=== PATIENT | female | born 1965 | race Caucasian/White ===

== ENCOUNTER → 2016-05-09 09:08 | Outpatient (CLI) | payer MEDICARE ==
[~2016-05-09 09:08] MED LIST: ACETAMINOPHEN500 M1 PO; BENADRYL25 MG IV; BENTYL10 MG PO; CIPRO500 MG PO; COLACE100 MG PO; EFFEXOR XR150 MG PO; ELIQUIS2.5 MG PO; FISH OIL 1,0001 CA1 PO; FLORANEX / LACT1 TAB PO; GLUCOPHAGE500 MG PO; HYDROCODON-ACE1 EAC7 PO; HYDROCODONE-APA1 TAB PO; IPRAT-ALBUT 0.5-3 ML UPD; K-DUR20 MEQ PO; LASIX40 MG PO; LOPRESSOR25 MG PO; MOBIC7.5 MG PO; MS CONTIN30 MG PO; NALOXONE HC0.4 MG/M1 IV; NAPROSYN500 MG PO; NEURONTIN 300300 MG PO; ONDANSETRON4 MG/2 M3 IV; POTASSIUM CHLO10 ME1 PO; PRILOSEC20 MG PO; PRINIVIL20 MG PO; PROBIOTIC PO; PROTONIX 40 MG40 MG IV; PROTONIX40 MG PO; QUESTRAN PACK4 G/PKT PO; REMERON15 MG/UDTA PO; SALINE FLUSH10 ML IV; SENOKOT-S TABLE1 TAB PO; UNASYN IV; XANAX1 MG PO; ZANAFLEX4 MG PO
== END | disposition home or self-care (01) ==
LOC: D.MRI 09:08
DX: R97.8 Other abnormal tumor markers (principal); M25.512 Pain in left shoulder

== ENCOUNTER 2016-07-25 10:53 | Outpatient (CLI) | payer MEDICARE ==
[~2016-07-25] VITALS: Ht 158.8 cm; Wt 125.0 kg
[2016-07-25] MEDS ORDERED: NEURONTIN600 MG PO (12:34)
[2016-07-25 13:12] VITALS: Ht 158.8 cm; Wt 125.0 kg
--- NOTE | 2016-07-25 13:34 | NUR ---
1310 O2 SAT 91% @ BEST ON ROOM AIR WITH DROPS BELOW 90. PT STATES SHE USES O2 2.5L/NC @ NIGHT. O2 2L/NC APPLIED. Omid ARROYO R.N. 1335 SERVED REGULAR DIET. Omid ARROYO R.N.
--- NOTE | 2016-07-25 19:10 | NUR ---
1830 IV DC WITH CATHER TIP INTACT
== END 2016-07-25 18:50 | disposition home or self-care (01) ==
LOC: D.OPS 10:53
DX: D64.9 Anemia, unspecified (principal)

== ENCOUNTER → 2016-07-27 09:32 | Outpatient (CLI) | payer MEDICARE ==
[2016-07-25 13:12] VITALS: BMI 49.6
[~2016-07-27 09:32] MED LIST changes: +NEURONTIN600 MG PO
[2016-07-27 09:59] LABS: BASOPHILS 0.3 % (0-2); EOSINOPHILS 8.4 % (0-7); HEMATOCRIT 33.9 % (36.0-48.0); HEMOGLOBIN 10.4 g/dL (12-16); IMMATURE GRANULOCYTES 0.4 % (0-5); LYMPHOCYTES 28.8 % (15-50); MCH 28.8 pg (26.0-34.0); MCHC 30.7 g/dL (31.0-37.0); MCV 93.9 fL (80.0-100.0); MEAN PLATELET VOLUME 10.4 fL (7.4-10.4); MONOCYTES 9.3 % (2-11); NEUTROPHILS 52.8 % (40-80); PLATELET COUNT 215 10x3/uL (130-400); RBC 3.61 10x6/uL (4.00-5.40); RDW 14.3 % (11.5-14.5); WBC 6.8 10x3/uL (4.8-10.8)
[2016-07-27 10:16] LABS: ANION GAP 9.6 mmol/L (8-16); CARBON DIOXIDE 30.8 mmol/L (21.0-32.0); CREATININE - SERUM 1.2 mg/dL (0.6-1.3); POTASSIUM - SERUM 4.4 mmol/L (3.5-5.1)
== END | disposition home or self-care (01) ==
LOC: D.LAB 09:32
PROVIDERS: Family Medicine
DX: D64.9 Anemia, unspecified (principal); N17.9 Acute kidney failure, unspecified

== ENCOUNTER → 2016-11-17 13:34 | Outpatient (CLI) | payer MEDICARE ==
[2016-07-25 13:12] VITALS: BMI 49.6
== END | disposition home or self-care (01) ==
LOC: D.MRI 09:00
DX: M54.16 Radiculopathy, lumbar region (principal)

== ENCOUNTER → 2016-11-21 12:25 | Outpatient (CLI) | payer MEDICARE ==
[2016-07-25 13:12] VITALS: BMI 49.6
== END | disposition home or self-care (01) ==
LOC: D.MAMMO 11:30
DX: Z12.31 Encounter for screening mammogram for malignant neoplasm of breast (principal)

== ENCOUNTER 2017-05-05 03:13 | Emergency (ER) | payer MEDICARE ==
[2016-07-25 13:12] VITALS: BMI 49.6
[2017-05-05 03:47] LABS: BASOPHILS 0.3 % (0-2); EOSINOPHILS 3.6 % (0-7); HEMATOCRIT 38.7 % (36.0-48.0); HEMOGLOBIN 12.3 g/dL (12-16); IMMATURE GRANULOCYTES 0.3 % (0-5); LYMPHOCYTES 30.6 % (15-50); MCHC 31.8 g/dL (31.0-37.0); MCV 94.4 fL (80.0-100.0); MEAN PLATELET VOLUME 11.5 fL (7.4-10.4); MONOCYTES 7.3 % (2-11); NEUTROPHILS 57.9 % (40-80); PLATELET COUNT 201 10x3/uL (130-400); WBC 10.1 10x3/uL (4.8-10.8)
[2017-05-05 04:01] LABS: ALBUMIN 3.8 g/dL (3.4-5.0); ANION GAP 12.4 mmol/L (8-16); BILIRUBIN - TOTAL 0.29 mg/dL (0.2-1.3); CALCIUM 9.6 mg/dL (8.5-10.1); CARBON DIOXIDE 33.6 mmol/L (21.0-32.0); CREATININE - SERUM 1.4 mg/dL (0.6-1.3); PROTEIN - SERUM 8.2 g/dL (6.4-8.2)
[2017-05-05 04:16] LABS: COLOR YELLOW (YELLOW)
[2017-05-05 04:18] LABS: APPEARANCE HAZY (CLEAR); BILIRUBIN NEGATIVE (NEGATIVE); GLUCOSE NEGATIVE (NEGATIVE); KETONE NEGATIVE (NEGATIVE); NITRITE NEGATIVE (NEGATIVE); PROTEIN TRACE mg/dL (NEGATIVE); SPECIFIC GRAVITY 1.015 (1.005-1.020); UROBILINOGEN NORMAL (NORMAL)
== END 2017-05-05 05:58 | disposition home or self-care (01) ==
LOC: D.ER 03:13
PROVIDERS: Emergency Medicine
DX: N39.0 Urinary tract infection, site not specified (principal); K52.9 Noninfective gastroenteritis and colitis, unspecified; I10 Essential (primary) hypertension; E11.9 Type 2 diabetes mellitus without complications

== ENCOUNTER 2017-06-29 00:08 | Observation (INO) | payer MEDICARE ==
[~2017-06-29] VITALS: Ht 158.8 cm; Wt 125.3 kg
--- NOTE | ~2017-06-29 | DS ---
PATIENT:DEANN HERNANDEZ :61 MEDICAL RECORD: [id number] DISCHARGE SUMMARY ADMISSION DATE: 06/29/17 DISCHARGE DATE: 07/01/17 DATE OF ADMISSION: 06/29/2017 DATE OF DISCHARGE: 07/01/2017 ADMISSION DIAGNOSES: Intractable nausea and vomiting and epigastric pain. CONSULTS: Dr. Dougherty of GI. PROCEDURES: EGD with findings of esophageal ulcers. DISCHARGE DIAGNOSES: Intractable nausea and vomiting, resolved. Esophageal ulcers. HOSPITAL COURSE: The patient was admitted to the Emergency Room with intractable nausea and vomiting and epigastric pain. GI consulted. IV fluids and antiemetics. EGD showed extensive esophagitis and esophageal ulcers. The patient started on Protonix and Carafate. Tolerating diet now, anxious to go home. The patient is discharged home in significantly improved condition. Will continue bland diet. Will follow up with Dr. Penny within the next 10 days. Will follow up with Dr. Dougherty. See chart for further details. TRANSINT:[id number] Voice Confirmation ID: [id number] DOCUMENT ID: [id number] KATHY HUYNH DO at 1828 CC: [id number] DICTATION DATE: 07/01/17 1258 JUNIOR LEGAL SECRETARY: 07/01/17 1342 DIS IN 07/01/17 [facility] [address] [place] [address]
[2017-06-29 00:48] LABS: BASOPHILS 0.2 % (0-2); EOSINOPHILS 1.9 % (0-7); HEMATOCRIT 42.7 % (36.0-48.0); IMMATURE GRANULOCYTES 0.3 % (0-5); LYMPHOCYTES 9.5 % (15-50); MCHC 32.8 g/dL (31.0-37.0); MCV 91.4 fL (80.0-100.0); MEAN PLATELET VOLUME 11.7 fL (7.4-10.4); MONOCYTES 6.1 % (2-11); PLATELET COUNT 180 10x3/uL (130-400); RBC 4.67 10x6/uL (4.00-5.40); RDW 13.8 % (11.5-14.5); WBC 13.2 10x3/uL (4.8-10.8)
[2017-06-29 01:05] LABS: ALBUMIN 3.8 g/dL (3.4-5.0); ANION GAP 13.6 mmol/L (8-16); BILIRUBIN - TOTAL 0.29 mg/dL (0.2-1.3); CARBON DIOXIDE 30.3 mmol/L (21.0-32.0); CREATININE - SERUM 1.4 mg/dL (0.6-1.3); POTASSIUM - SERUM 3.9 mmol/L (3.5-5.1); PROTEIN - SERUM 8.3 g/dL (6.4-8.2)
[2017-06-29 05:45] LABS: APPEARANCE CLOUDY (CLEAR); BILIRUBIN NEGATIVE (NEGATIVE); COLOR DK YELLOW (YELLOW); GLUCOSE NEGATIVE (NEGATIVE); KETONE MODERATE mg/dL (NEGATIVE); NITRITE NEGATIVE (NEGATIVE); PROTEIN NEGATIVE (NEGATIVE); UROBILINOGEN NORMAL (NORMAL)
[2017-06-29 06:12] LABS: BASOPHILS 0.1 % (0-2); EOSINOPHILS 0.9 % (0-7); HEMATOCRIT 43.9 % (36.0-48.0); HEMOGLOBIN 14.3 g/dL (12-16); IMMATURE GRANULOCYTES 0.3 % (0-5); LYMPHOCYTES 2.6 % (15-50); MCH 29.9 pg (26.0-34.0); MCHC 32.6 g/dL (31.0-37.0); MCV 91.6 fL (80.0-100.0); MEAN PLATELET VOLUME 12.2 fL (7.4-10.4); MONOCYTES 3.2 % (2-11); NEUTROPHILS 92.9 % (40-80); PLATELET COUNT 153 10x3/uL (130-400); RBC 4.79 10x6/uL (4.00-5.40); RDW 13.9 % (11.5-14.5); WBC 11.5 10x3/uL (4.8-10.8)
[2017-06-29 06:34] LABS: ALBUMIN 3.9 g/dL (3.4-5.0); ANION GAP 14.7 mmol/L (8-16); BILIRUBIN - TOTAL 0.5 mg/dL (0.2-1.3); CALCIUM 8.9 mg/dL (8.5-10.1); CARBON DIOXIDE 27.4 mmol/L (21.0-32.0); CREATININE - SERUM 1.5 mg/dL (0.6-1.3); POTASSIUM - SERUM 4.1 mmol/L (3.5-5.1); PROTEIN - SERUM 7.9 g/dL (6.4-8.2)
[2017-06-29] MEDS ORDERED: LIPITOR20 MG PO (15:44)
[2017-06-29] MEDS ORDERED: VITAMIN D31000 UNI2 PO (15:45)
[2017-06-29] MEDS ORDERED: IRON (15:49)
[2017-06-29 15:50] VITALS: BP 147/69; Ht 158.8 cm; Wt 125.3 kg
[2017-06-29 20:00] VITALS: BP 118/60
[2017-06-30 01:00] VITALS: BP 115/41
[2017-06-30 04:00] VITALS: BP 103/58
[2017-06-30 05:44] LABS: BASOPHILS 0.2 % (0-2); EOSINOPHILS 1.9 % (0-7); HEMATOCRIT 39.4 % (36.0-48.0); HEMOGLOBIN 12.6 g/dL (12-16); IMMATURE GRANULOCYTES 0.2 % (0-5); LYMPHOCYTES 13.2 % (15-50); MCH 29.6 pg (26.0-34.0); MCV 92.7 fL (80.0-100.0); MEAN PLATELET VOLUME 11.9 fL (7.4-10.4); NEUTROPHILS 78.5 % (40-80); PLATELET COUNT 129 10x3/uL (130-400); RBC 4.25 10x6/uL (4.00-5.40); RDW 14.4 % (11.5-14.5)
[2017-06-30 05:48] LABS: WBC 5.4 10x3/uL (4.8-10.8)
[2017-06-30 06:02] LABS: INR 1.2 (0.85-1.17); PROTIME 14.7 SECONDS (11.6-15.0)
[2017-06-30 06:30] LABS: ANION GAP 15.3 mmol/L (8-16); BILIRUBIN - TOTAL 0.66 mg/dL (0.2-1.3); CALCIUM 8.4 mg/dL (8.5-10.1); CARBON DIOXIDE 25.4 mmol/L (21.0-32.0); CHOL - HDL RATIO 2.7 ratio (2.3-4.1); CREATININE - SERUM 1.4 mg/dL (0.6-1.3); LDL-HDL RATIO 1.2 ratio (1.5-3.5); POTASSIUM - SERUM 3.7 mmol/L (3.5-5.1); PROTEIN - SERUM 7.2 g/dL (6.4-8.2)
[2017-06-30 12:23] VITALS: BP 142/56
[2017-06-30 16:39] VITALS: BP 135/62
[2017-07-01 05:24] LABS: BASOPHILS 0.2 % (0-2); HEMATOCRIT 37.1 % (36.0-48.0); HEMOGLOBIN 11.8 g/dL (12-16); IMMATURE GRANULOCYTES 0.2 % (0-5); LYMPHOCYTES 27.2 % (15-50); MCH 29.4 pg (26.0-34.0); MCHC 31.8 g/dL (31.0-37.0); MCV 92.3 fL (80.0-100.0); MEAN PLATELET VOLUME 11.8 fL (7.4-10.4); MONOCYTES 11.2 % (2-11); NEUTROPHILS 55.2 % (40-80); PLATELET COUNT 108 10x3/uL (130-400); RBC 4.02 10x6/uL (4.00-5.40)
[2017-07-01 05:41] LABS: ANION GAP 11.3 mmol/L (8-16); CALCIUM 8.8 mg/dL (8.5-10.1); CARBON DIOXIDE 27.3 mmol/L (21.0-32.0); CREATININE - SERUM 1.3 mg/dL (0.6-1.3); MAGNESIUM - SERUM 1.9 mg/dL (1.8-2.4); PHOSPHOROUS 2.7 mg/dL (2.5-4.9); POTASSIUM - SERUM 3.6 mmol/L (3.5-5.1)
[2017-07-01 05:48] VITALS: BP 107/60
[2017-07-01 06:13] LABS: APPEARANCE CLEAR (CLEAR); BILIRUBIN NEGATIVE (NEGATIVE); COLOR YELLOW (YELLOW); GLUCOSE NEGATIVE (NEGATIVE); KETONE NEGATIVE (NEGATIVE); NITRITE NEGATIVE (NEGATIVE); PROTEIN NEGATIVE (NEGATIVE); UROBILINOGEN NORMAL (NORMAL)
[2017-07-01 08:02] VITALS: BP 124/67
[2017-07-01 11:16] VITALS: BP 158/76
[2017-07-01] MEDS ORDERED: PROTONIX40 MG PO (12:49)
[2017-07-01] MEDS ORDERED: CARAFATE1 G/10 ML PO (12:50)
[2017-07-01 15:01] VITALS: BP 191/68
[2017-07-01] MEDS ORDERED: OMEPRAZOLE40 MG PO (16:35)
[2017-07-01] MEDS ORDERED: CARAFATE1 G PO (16:36)
[2017-07-01] MEDS ORDERED: PEPCID40 MG PO (16:37)
== END 2017-07-01 17:16 | disposition home or self-care (01) ==
LOC: D.ER 00:08 → D.M2 08:52 → D.EDHOLD 08:52 → OBSVTIME 08:52 → D.EDHOLD 08:52 → D.M2 14:13
PROVIDERS: Emergency Medicine; Family Medicine; Internal Medicine Gastroenterology
DX: K22.10 Ulcer of esophagus without bleeding (principal); K29.00 Acute gastritis without bleeding; K29.80 Duodenitis without bleeding; E11.9 Type 2 diabetes mellitus without complications; I10 Essential (primary) hypertension; E86.0 Dehydration

== ENCOUNTER 2017-08-15 13:54 | Emergency (ER) | payer MEDICARE ==
[~2017-08-15] VITALS: Ht 158.8 cm; Wt 125.9 kg
[~2017-08-15 13:54] MED LIST changes: +CARAFATE1 G PO; +CARAFATE1 G/10 ML PO; +IRON; +LIPITOR20 MG PO; +OMEPRAZOLE40 MG PO; +PEPCID40 MG PO; +VITAMIN D31000 UNI2 PO
[2017-08-15 13:57] VITALS: Ht 158.8 cm; Wt 125.9 kg
[2017-08-15] MEDS ORDERED: VITAMIN D31000 UNI2 PO (14:03)
[2017-08-15] MEDS ORDERED: ULTRAM50 MG PO (16:13)
[2017-08-15 16:41] VITALS: BP 124/61
== END 2017-08-15 16:43 | disposition home or self-care (01) ==
LOC: D.ER 13:54
DX: S93.402A Sprain of unspecified ligament of left ankle, initial encounter (principal); X50.1XXA Overexertion from prolonged static or awkward postures, initial encounter; Y93.89 Activity, other specified; Y92.019 Unspecified place in single-family (private) house as the place of occurrence of the external cause; I10 Essential (primary) hypertension; E11.9 Type 2 diabetes mellitus without complications

== ENCOUNTER 2017-12-06 12:23 | Day surgery (SDC) | payer MEDICARE ==
[~2017-12-06] VITALS: Ht 158.8 cm; Wt 127.3 kg
--- NOTE | ~2017-12-06 | OP ---
PATIENT NAME: DEANN HERNANDEZ MEDICAL RECORD: [id number] :61 LOCATION:D[facility] ADMISSION DATE: SURGEON: LAUREL DOUGHERTY MD DATE OF OPERATION: 12/06/2017 PROCEDURE: EGD with biopsy. FIRE SPRINKLER SERVICE TECHNICIAN: Laurel Dougherty MD SCOPE: Olympus video gastroscope. MEDICATIONS: Per TIVA anesthesia. The patient received 100 mg of propofol for this procedure, O2 at 4 liters. INDICATIONS FOR THE PROCEDURE: 1. To document healing of acute gastric ulcers without hemorrhage or perforation in the antral area. 2. Gastroesophageal reflux disease. FINDINGS: Informed consent was given. The patient was made comfortable with the above medications. After reaching an adequate level of sedation by slow IV push, the patient was placed on her left side. The endoscope was then advanced under direct visualization through the posterior pharyngeal area and advanced to the distal esophagus. At the distal esophageal area, only minimal inflammation was appreciated. Biopsies were obtained. On entering the stomach, the previous documented gastric ulcers were seen to have healed. The patient had a few very small erosions. No bleeding and no visible vessels were present. The cardia, body, and fundus had minimal inflammation present. The body had minimal inflammation. The duodenal bulb to the second portion was normal except for minimal inflammation. No biopsies were obtained. The scope was then withdrawn. IMPRESSION: 1. The patient with chronic esophagitis due to gastroesophageal reflux disease. No ulcers or erosions. 2. Healed gastric ulcers at the antral area. 3. Very mild gastritis, most pronounced at the antral area. 4. Mild duodenitis. No biopsies needed. PLAN: 1. The patient will be asked to change her famotidine to 20 mg p.o. b.i.d. and continue. 2. She can stop omeprazole as well as sucralfate and use only on p.r.n. basis. 3. Follow reflux precautions stringently, both dietary and positional. No chocolate, tomato, citrus, caffeine, fatty foods, peppermint. The patient should not eat late at night and sit up for a couple hours after meals if she refluxes during nighttime. She should sleep with the head of the bed elevated. 4. Caution with anti-inflammatory drugs. TRANSINT:[id number] Voice Confirmation ID: [id number] DOCUMENT ID: [id number] OPERATIVE REPORT [id number] DAVIDDEANN RAMOS BRENDA MD at 1304 CC: SADE ORTEGA DO [id number] DICTATION DATE: 12/06/17 1515 WEIGH BOX TENDER: 12/06/17 1527 [facility] 12/06/17 [place] [id number] [place] [id number]
[~2017-12-06 12:23] MED LIST changes: +ULTRAM50 MG PO
[2017-12-06 12:59] LABS: BASOPHILS 0.3 % (0-2); HEMATOCRIT 36.5 % (36.0-48.0); HEMOGLOBIN 11.7 g/dL (12-16); IMMATURE GRANULOCYTES 0.2 % (0-5); LYMPHOCYTES 33.7 % (15-50); MCH 28.9 pg (26.0-34.0); MCHC 32.1 g/dL (31.0-37.0); MCV 90.1 fL (80.0-100.0); MEAN PLATELET VOLUME 11.3 fL (7.4-10.4); MONOCYTES 8.9 % (2-11); NEUTROPHILS 53.9 % (40-80); PLATELET COUNT 121 10x3/uL (130-400); RBC 4.05 10x6/uL (4.00-5.40); RDW 13.4 % (11.5-14.5); WBC 5.8 10x3/uL (4.8-10.8)
[2017-12-06 13:11] LABS: ANION GAP 9.6 mmol/L (8-16); CALCIUM 8.4 mg/dL (8.5-10.1); CARBON DIOXIDE 29.7 mmol/L (21.0-32.0); CREATININE - SERUM 1.1 mg/dL (0.6-1.3); POTASSIUM - SERUM 4.3 mmol/L (3.5-5.1)
[2017-12-06 13:27] VITALS: BP 157/81; Ht 158.8 cm; Wt 127.3 kg
== END 2017-12-06 15:55 | disposition home or self-care (01) ==
LOC: D.OPS 12:23
PROVIDERS: Anesthesiology
DX: K21.0 Gastro-esophageal reflux disease with esophagitis (principal); K29.50 Unspecified chronic gastritis without bleeding; K29.80 Duodenitis without bleeding; Z01.812 Encounter for preprocedural laboratory examination

== ENCOUNTER → 2017-12-17 15:05 | Outpatient (CLI) | payer MEDICARE ==
[2017-12-06 13:27] VITALS: BMI 50.5
== END | disposition home or self-care (01) ==
LOC: D.MRI 15:00
DX: R51 Headache (principal)

== ENCOUNTER → 2018-05-13 12:55 | Outpatient (CLI) | payer MEDICARE ==
[2017-12-06 13:27] VITALS: BMI 50.5
== END | disposition home or self-care (01) ==
LOC: D.US 12:55
PROVIDERS: ATTEND Family Medicine
DX: N94.6 Dysmenorrhea, unspecified (principal); R10.2 Pelvic and perineal pain

== ENCOUNTER 2018-12-17 08:00 | Outpatient (CLI) | payer MEDICARE ==
[2017-12-06 13:27] VITALS: BMI 50.5
== END 2018-12-17 23:59 | disposition home or self-care (01) ==
LOC: D.MAMMO 08:00
PROVIDERS: ATTEND Family Medicine
DX: Z12.31 Encounter for screening mammogram for malignant neoplasm of breast (principal)

== ENCOUNTER 2019-05-02 09:00 | Outpatient (CLI) | payer MEDICARE ==
[2017-12-06 13:27] VITALS: BMI 50.5
== END 2019-05-02 10:00 | disposition home or self-care (01) ==
LOC: D.MAMMO 09:00
PROVIDERS: ATTEND Family Medicine
DX: Z12.31 Encounter for screening mammogram for malignant neoplasm of breast (principal)